=== PATIENT | male | born 1945 | race Caucasian/White ===

== ENCOUNTER 2018-05-27 10:11 | Inpatient (IN) | END 2018-06-03 15:14 | disposition home health service (06) | DRG 454 ==

== ENCOUNTER 2018-06-04 03:48 | Emergency (ER) | END 2018-06-04 05:41 | disposition home or self-care (01) ==

== ENCOUNTER 2018-06-06 11:38 | Emergency (ER) | END 2018-06-06 14:36 | disposition home or self-care (01) ==